=== PATIENT | male | born 1990 | race Two or more races ===

== ENCOUNTER → 2021-06-22 22:49 | Emergency (ER) | payer MEDICAID, OTHER ==
[~2021-06-22] VITALS: Ht 165.1 cm; Wt 61.2 kg
[2021-06-22 22:49] VITALS: BP 113/63
== END | disposition left against medical advice (07) ==
LOC: ER 22:49
DX: R51.9 Headache, unspecified (principal); Z53.21 Procedure and treatment not carried out due to patient leaving prior to being seen by health care provider